=== PATIENT | female | born 1980 | race Caucasian/White ===

== ENCOUNTER 2020-04-29 17:00 | Inpatient (IN) | payer OTHER ==
[2020-04-29 18:28] VITALS: BMI 33.5
[2020-04-29] MEDS ORDERED: CITRIC ACID/SODIUM CITRATE 30 ML UNIT-DOSE CUP PO ONE (19:34)
--- NOTE | 2020-04-29 19:41 | HP ---
Past Medical History - Admission Chief Complaint: Elective History of Present Illness: 39 yo @ 37 weeks gestation, EDC 05/15/20 with previous and gestational diabetes, on insulin, seen by [facility] today at [facility] and was sent for delivery due to associated elevated blood pressure. Patient denies any headache, blurry vision nor epigastric pain.She is scheduled for repeat c- section. History Source: Patient Limitations to Obtaining History: No Limitations - Past Medical History ...: 2 ...Para: 1 ...Term: 1 ...: 0 ...Spon : 0 ...Induced : 0 ...Living Children: 1 ...Multiple Gestation: 0 ...EDC by Tarah: 05/15/20 - Past Surgical History Past Surgical History: Yes: Hx Myomectomy: No Hx Transabdominal Cerclage: No - Smoking History Smoking history: Never smoked Have you smoked in the past 12 months: No - Alcohol/Substance Use Hx Alcohol Use: No History of Substance Use: reports: None - Social History Usual Living Arrangement: Yes: With Child Do you think of yourself as: Straight/Heterosexual History of Recent Travel: No Home Medications - Allergies Allergies/Adverse Reactions: Allergies Allergy/AdvReac Type Severity Reaction Status Date / Time No Known Allergies Allergy Verified 04/29/20 17:35 - Home Medications Home Medications: Ambulatory Orders Insulin NPH [Novolin N Vial] 8 units SQ DAILY 04/29/20 No115/Iron/Folic Acid [ 19 Chewable Tablet] 1 each PO DAILY 04/29/20 Family Medical History Family History: Unremarkable Review of Systems - Review of Systems Constitutional: reports: No Symptoms Eyes: reports: No Symptoms HENT: reports: No Symptoms Neck: reports: No Symptoms Cardiovascular: reports: No Symptoms Respiratory: reports: No Symptoms Gastrointestinal: reports: No Symptoms Genitourinary: reports: No Symptoms Breasts: reports: No Symptoms Reported Musculoskeletal: reports: No Symptoms Neurological: reports: No Symptoms Psychiatric: reports: No Symptoms Pain Intensity: 0 Physical Exam - Maternity Vital Signs: Vital Signs Temperature 98.5 F 04/29/20 18:13 Pulse Rate 104 H 04/29/20 18:13 Respiratory Rate 04/29/20 18:13 Blood Pressure 138/87 04/29/20 18:13 O2 Sat by Pulse Oximetry (%) 100 04/29/20 18:00 Constitutional: Yes: No Distress Eyes: Yes: Conjunctiva Clear HENT: Yes: Atraumatic Neck: Yes: Supple Cardiovascular: Yes: Regular Rate and Rhythm Lungs: Clear to auscultation - Abdominal Exam/OB Number of Fetuses: Single Presentation: Vertex Contractions: No - Vaginal Exam/OB Vaginal Bleeding: No - Physical Exam ...Motor Strength: WNL Psychiatric: Yes: Alert, Oriented Problem List - Problems (1) 37 weeks gestation of Code(s): Z3A.37 - 37 WEEKS GESTATION OF (2) Previous section Code(s): Z98.891 - HISTORY OF UTERINE SCAR FROM PREVIOUS SURGERY (3) Gestational diabetes mellitus (GDM) affecting Code(s): O24.419 - GESTATIONAL DIABETES MELLITUS IN , UNSP CONTROL (4) Gestational hypertension Code(s): O13.9 - GESTATIONAL HTN W/O SIGNIFICANT PROTEINURIA, UNSP TRIMESTER Assessment/Plan 37 weeks gestation Previous Gestational diabetes Gestational hypertension Pre op for repeat Consent signed Anesthesia to see patient
[2020-04-29] MEDS: ELECTROLYTE-148 SOLN 1,000 ML IV SCH (20:20)
[2020-04-29 20:27] LABS: RETICULOCYTES 1.91 % (0.5-1.5)
[2020-04-29 20:28] LABS: BASO % 0.5 % (0-2.0); EOS % 0.8 % (0-4.5); HEMATOCRIT 37.7 % (32.4-45.2); HEMOGLOBIN 12.8 GM/dL (10.7-15.3); LYMPH % 32.1 % (8-40); MCH 32.5 pg (25.7-33.7); MCHC 33.9 g/dl (32.0-36.0); MEAN CELL VOLUME 95.9 fl (80-96); MEAN PLT VOLUME 12.1 fl (7.5-11.1); NEUT % 57.6 % (42.8-82.8); RBC 3.93 M/mm3 (3.60-5.2); RDW 13.6 % (11.6-15.6); WHITE BLOOD COUNT 9.1 K/mm3 (4.0-10.0)
[2020-04-29 20:41] LABS: INR 0.88 (0.83-1.09); PROTHROMBIN TIME (PATIENT) 10.4 SEC (9.7-13.0)
[2020-04-29 20:44] LABS: ACTIVATED PTT 27.1 SECONDS (25.2-36.5)
[2020-04-29 21:18] LABS: BLOOD UREA NITROGEN 10.5 mg/dL (7-18); CALCIUM 8.8 mg/dL (8.5-10.1); CREATININE 0.7 mg/dL (0.55-1.3); URIC ACID 7.5 mg/dL (2.6-7.2)
[2020-04-29 21:19] LABS: GAMMA GLUTAMYL TRANSPEPTIDASE 47 U/L (5-85); SGOT/AST 24 U/L (15-37); SGPT/ALT 16 U/L (13-61)
[2020-04-29 21:50] LABS: PLATELET COUNT 115 K/MM3 (134-434); PLATELET ESTIMATE DECREASED
[2020-04-29] MEDS ORDERED: KETOROLAC TROMETHAMINE 30 MG/1 ML VIAL ONE (22:01)
[2020-04-29] MEDS ORDERED: morphine SULFATE/PF 0.5 MG/ML (2cc Syringe - QUVA) ONE (22:01)
[2020-04-29] MEDS ORDERED: CEFAZOLIN 2 GM/D5W 2 GM/50 ML ML IVPB ONE (22:03)
[2020-04-29] MEDS ORDERED: OXYTOCIN 20 UNITS in 0.9% NS 20 UNIT/1,000 ML INFUS.BAG IV ONE (22:03)
[2020-04-29] MEDS ORDERED: OXYTOCIN 10 UNITS/ML VIAL ONE (22:32)
[2020-04-29] MEDS ORDERED: IBUPROFEN 800 MG/8 ML IJ IVPB PRN (23:11)
[2020-04-29] MEDS ORDERED: METHYLERGONOVINE MALEATE 0.2 MG/1 ML AMP IM PRN (23:11)
--- NOTE | 2020-04-29 23:16 | OP ---
Operative Note - Note: Operative Date: 04/29/20 Pre-Operative Diagnosis: Previous / GDMA / 37 weeks / Gestational hypertension Operation: Repeat Low Transverse Findings: Nuchal cord x 2 Post-Operative Diagnosis: Same as Pre-op Surgeon: Jhoana Billings Sales Representative Business Courses: Aron Sanchez Anesthesia: Spinal Specimens Removed: Placenta Estimated Blood Loss (mls): 700
[2020-04-29] MEDS ORDERED: ONDANSETRON 4 MG/2 ML VIAL IVPUSH PRN (23:18)
[2020-04-29] MEDS: OXYTOCIN 20 UNITS in 0.9% NS 20 UNIT/1,000 ML INFUS.BAG IV SCH (23:30)
[2020-04-29 23:54] LABS: CORD BASE EXCESS -3.2 mmol/L (0-2); CORD HCO3 23.9 mmHg (20-29); CORD PCO2 50.6 mmHg (30-78); CORD pH 7.292 (7.14-7.44)
[2020-04-30 08:32] LABS: BASO % 0.5 % (0-2.0); EOS % 0.7 % (0-4.5); HEMATOCRIT 30.9 % (32.4-45.2); HEMOGLOBIN 10.3 GM/dL (10.7-15.3); LYMPH % 22.6 % (8-40); MCH 31.7 pg (25.7-33.7); MCHC 33.4 g/dl (32.0-36.0); MEAN CELL VOLUME 95.1 fl (80-96); MEAN PLT VOLUME 11.6 fl (7.5-11.1); MONO % 6.6 % (3.8-10.2); NEUT % 69.6 % (42.8-82.8); PLATELET COUNT 118 K/MM3 (134-434); RBC 3.25 M/mm3 (3.60-5.2); RDW 13.4 % (11.6-15.6)
[2020-04-30] MEDS: FERROUS SO4 325 MG TABLET (FP) PO SCH ×2 (09:37→22:56)
[2020-04-30] MEDS: PRENATAL VITAMINS W/ FOLIC ACID TABLET (FP) PO SCH (09:37)
[2020-04-30] MEDS: IBUPROFEN 600 MG TABLET (FP) PO PRN ×3 (13:25→21:57)
[2020-04-30] MEDS: SIMETHICONE 80 MG TAB.CHEW (FP) PO PRN (13:25)
[2020-04-30] MEDS ORDERED: oxyCODONE HCL 5 MG TABLET PO PRN (17:29)
[2020-04-30] MEDS ORDERED: ACETAMINOPHEN 325 MG TABLET (FP) PO PRN (17:30)
[2020-04-30] MEDS: ELECTROLYTE-148 SOLN 1,000 ML IV SCH (21:56)
[2020-04-30] MEDS: ACETAMINOPHEN 325 MG TABLET (FP) PO PRN (21:58)
[2020-04-30] MEDS ORDERED: BISACODYL 10 MG SUPP.RECT RC PRN (23:11)
[2020-04-30] MEDS: OXYTOCIN 20 UNITS in 0.9% NS 20 UNIT/1,000 ML INFUS.BAG IV SCH (23:35)
[2020-05-01] MEDS: ACETAMINOPHEN 325 MG TABLET (FP) PO PRN ×4 (05:02→23:00)
[2020-05-01] MEDS: IBUPROFEN 600 MG TABLET (FP) PO PRN ×4 (05:03→22:59)
[2020-05-01] MEDS: SIMETHICONE 80 MG TAB.CHEW (FP) PO PRN ×2 (05:03→11:15)
--- NOTE | 2020-05-01 08:21 | PN ---
Post Progress Note - Subjective Subjective: 39 yo Para 2 status post repeat Low transverse , seen and evaluated. Doing well. Post Day: 2 Type of Delivery: Repeat C/S Vital Signs: Vital Signs Temperature 98.3 F 04/30/20 22:00 Pulse Rate 67 04/30/20 22:00 Respiratory Rate 18 04/30/20 22:00 Blood Pressure 149/95 04/30/20 22:00 O2 Sat by Pulse Oximetry (%) 99 04/30/20 22:00 Breast Exam: Yes: Soft Uterus: Yes: Fundus below umbilicus Incision: Yes: Dressing dry and intact Abdomen/GI: Yes: Abdomen soft, Tolerating PO Lochia: Yes: Rubra Lochia, amount: Small Extremities: Yes: Calves non-tender Activity: Ambulating - Labs Labs: CBC WBC 11.0 K/mm3 (4.0-10.0) H 04/30/20 08:00 RBC 3.25 M/mm3 (3.60-5.2) L 04/30/20 08:00 Hgb 10.3 GM/dL (10.7-15.3) L 04/30/20 08:00 Hct 30.9 % (32.4-45.2) L D 04/30/20 08:00 MCV 95.1 fl (80-96) 04/30/20 08:00 MCH 31.7 pg (25.7-33.7) 04/30/20 08:00 MCHC 33.4 g/dl (32.0-36.0) 04/30/20 08:00 RDW 13.4 % (11.6-15.6) 04/30/20 08:00 Plt Count 118 K/MM3 (134-434) L 04/30/20 08:00 MPV 11.6 fl (7.5-11.1) H 04/30/20 08:00 Absolute Neuts (auto) 7.6 K/mm3 (1.5-8.0) 04/30/20 08:00 Neutrophils % 69.6 % (42.8-82.8) D 04/30/20 08:00 Lymphocytes % 22.6 % (8-40) D 04/30/20 08:00 Monocytes % 6.6 % (3.8-10.2) 04/30/20 08:00 Eosinophils % 0.7 % (0-4.5) 04/30/20 08:00 Basophils % 0.5 % (0-2.0) 04/30/20 08:00 Nucleated RBC % 0 % (0-0) 04/30/20 08:00 Platelet Estimate Decreased 04/29/20 20:05 Platelet Comment Rare giant plts 04/29/20 20:05 Retic Count 1.91 % (0.5-1.5) H 04/29/20 20:05 Haptoglobin 38 mg/dL (33-278) 04/29/20 20:05 Problem List - Problems (1) 37 weeks gestation of Code(s): Z3A.37 - 37 WEEKS GESTATION OF (2) Previous section Code(s): Z98.891 - HISTORY OF UTERINE SCAR FROM PREVIOUS SURGERY (3) Gestational diabetes mellitus (GDM) affecting Code(s): O24.419 - GESTATIONAL DIABETES MELLITUS IN , UNSP CONTROL (4) Gestational hypertension Code(s): O13.9 - GESTATIONAL HTN W/O SIGNIFICANT PROTEINURIA, UNSP TRIMESTER (5) Status post repeat low transverse section Code(s): Z98.891 - HISTORY OF UTERINE SCAR FROM PREVIOUS SURGERY Assessment/Plan Status post repeat Low Transverse Ambulation Analgesia as needed Continue routine post op care
[2020-05-01] MEDS: FERROUS SO4 325 MG TABLET (FP) PO SCH ×2 (09:54→22:59)
[2020-05-01] MEDS: PRENATAL VITAMINS W/ FOLIC ACID TABLET (FP) PO SCH (09:54)
[2020-05-01 22:59] VITALS: PULSE 69; TEMP 99.4
--- NOTE | 2020-05-02 08:01 | PN ---
Post Note - Post Date of Delivery: 04/29/20 Vital Signs: Vital Signs - 24 hr 05/01/20 05/01/20 10:00 22:00 Temperature 98.2 F 99.4 F Pulse Rate 61 69 Respiratory 18 18 Rate Blood Pressure 129/75 133/77 O2 Sat by Pulse 99 98 Oximetry (%) Labs: Laboratory Results - last 24 hr 04/29/20 05/01/20 20:05 23:05 Haptoglobin 38 POC Glucometer 128 - Subjective Subjective: No Complaints - Objective Afebrile: Yes Breast: Not engorged Abdomen: Soft, Non-tender, Other (inCISion intact) Uterus: Fundus firm Vagina: Scant lochia Extremities: Non-tender - Assessment/Plan (1) Status post repeat low transverse section Assessment: Other (POD) Plan: Routine Care
[2020-05-02 08:56] LABS: BASO % 0.7 % (0-2.0); EOS % 2.4 % (0-4.5); HEMATOCRIT 26.3 % (32.4-45.2); HEMOGLOBIN 8.7 GM/dL (10.7-15.3); LYMPH % 23.3 % (8-40); MCH 31.8 pg (25.7-33.7); MCHC 33.1 g/dl (32.0-36.0); MEAN CELL VOLUME 96.3 fl (80-96); MEAN PLT VOLUME 10.7 fl (7.5-11.1); MONO % 6.1 % (3.8-10.2); NEUT % 67.5 % (42.8-82.8); PLATELET COUNT 142 K/MM3 (134-434); RBC 2.73 M/mm3 (3.60-5.2); RDW 13.6 % (11.6-15.6); WHITE BLOOD COUNT 11.1 K/mm3 (4.0-10.0)
[2020-05-02] MEDS: PRENATAL VITAMINS W/ FOLIC ACID TABLET (FP) PO SCH (09:27)
[2020-05-02] MEDS: FERROUS SO4 325 MG TABLET (FP) PO SCH (09:27)
[2020-05-02] MEDS: IBUPROFEN 600 MG TABLET (FP) PO PRN (09:31)
[2020-05-02] MEDS: ACETAMINOPHEN 325 MG TABLET (FP) PO PRN (09:32)
[2020-05-02] MEDS: SIMETHICONE 80 MG TAB.CHEW (FP) PO PRN (09:32)
--- NOTE | 2020-05-02 11:22 | DS ---
Physical Exam-CLINICAL DATA MANAGEMENT DIRECTOR Vital Signs: Vital Signs Temperature 99.4 F 05/01/20 22:00 Pulse Rate 69 05/01/20 22:00 Respiratory Rate 18 05/01/20 22:00 Blood Pressure 133/77 05/01/20 22:00 O2 Sat by Pulse Oximetry (%) 98 05/01/20 22:00 Constitutional: Yes: No Distress Eyes: Yes: Conjunctiva Clear HENT: Yes: Atraumatic Neck: Yes: Supple Cardiovascular: Yes: Regular Rate and Rhythm Respiratory: Yes: Regular Gastrointestinal: Yes: Normal Bowel Sounds External Genitalia: Yes: Normal Vaginal Exam: Yes: Normal Uterus: Yes: Firm Wound/Incision: Yes: Well Approximated, Steri Strips (in place) Neurological: Yes: Alert, Oriented ...Motor Strength: WNL Psychiatric: Yes: Alert, Oriented Labs: CBC, BMP 05/02/20 08:04 04/29/20 17:44 Delivery - Delivery Type of Anesthesia: Spinal Episiotomy/Laceration: None EBL (cc): 600 Delivery, Single - Stages of Labor Date of Delivery: 04/29/20 Time of Delivery: 22:33 Time Placenta Delivered: 22:34 - Condition of Infant Legal Researcher/Team Assembly Line Machine Operator Present: Yes Name: Nan Cabrera Infant Gender: Female Weight: 8 lb 4 oz Position: OA Total Hours ROM (Hrs/Mins): 3 min - 1 Minute Total Score: 9 5 Minutes Total Score: 9 - [place] Feeding Plan Initial Plan: Elected not to breastfeed exclusively throughout hospitalization Discharge Summary Problems reviewed: Yes Reason For Visit: C SECTION ADMIT Current Active Problems 37 weeks gestation of (Acute) Gestational diabetes mellitus (GDM) affecting (Acute) Gestational hypertension (Acute) Previous section (Acute) Status post repeat low transverse section (Acute) Procedures: Principal: Repeat Low Transverse Hospital Course: Routine post op care Health Concerns: None Plan of Treatment: Ambulation Analgesia as needed F/U with MD in 1 week Goals: Resume regular activities in 4 weeks Condition: Good - Instructions Diet, Activity, Other Instructions: Regular diet No driving, no lifting x 4 weeks F/U with MD in one week Disposition: HOME - Home Medications Comprehensive Discharge Medication List: Ambulatory Orders Insulin NPH [Novolin N Vial] 8 units SQ DAILY 04/29/20 No115/Iron/Folic Acid [ 19 Chewable Tablet] 1 each PO DAILY 04/29/20
[2020-05-02 11:39] VITALS: BP 125/89
--- NOTE | 2020-05-02 13:27 | OP ---
DATE OF OPERATION: 04/29/2020 PREOPERATIVE DIAGNOSIS: Thirty-seven weeks' gestation with previous section, gestational diabetes type 2, and gestational hypertension. POSTOPERATIVE DIAGNOSIS: Thirty-seven weeks' gestation with previous section, gestational diabetes type 2, and gestational hypertension. PROCEDURE: Repeat low transverse section. SURGEON: Jhoana Billings MD ULTRASONIC TESTER: PHILLY Jones ANESTHESIA: Spinal. COMPLICATIONS: None. ESTIMATED BLOOD LOSS: 700 mL. DESCRIPTION OF PROCEDURE: Patient was taken to the operating room where spinal anesthesia was administered. Patient was then prepped and draped in proper sterile fashion. A Pfannenstiel skin incision was made and carried down through the underlying layer of fascia. The fascia was incised in the midline and extended laterally. The inferior aspect of the fascial incision was then grasped with Ranjana clamp, elevated, and the rectus muscle dissected off bluntly. Attention was then turned to the superior aspect of the fascial incision, which in a similar fashion was then grasped with a Ranjana clamp, elevated, and the rectus muscle dissected off bluntly. The rectus muscle was then in the midline, the peritoneum identified and entered sharply with Metzenbaum scissors. This incision was extended superiorly and inferiorly, with good visualization of the bladder. Then the vesicouterine peritoneum was then grasped with a pickup and entered sharply with the Metzenbaum scissors. This incision was extended laterally and a bladder flap created digitally. A bladder blade was inserted, then the lower uterine segment was incised using a 10-blade. This incision was extended laterally and the head delivered atraumatically. Nose and mouth were suctioned. Nuchal cord x2. This cord was released and clamped and cut. The infant was handed to the waiting glass bender. The placenta was removed manually. The uterus was exteriorized and cleared of all clots and debris. The uterine incision was repaired using 0 Biosyn in a running locked fashion. A second layer of the same suture was used as a means to provide excellent hemostasis. The pelvis was then completely irrigated. The uterus was returned to the abdomen. Then the peritoneum was closed, and the fascia was reapproximated using 0 Vicryl in a running fashion, and the skin was closed in a subcuticular fashion using 3-0 Vicryl. Patient tolerated procedure well. Patient was then taken to PACU in stable condition. PATHOLOGY: Placenta. [place] [id number]
--- NOTE | 2020-05-06 17:40 | PATH ---
Surgical Pathology Report Patient Name: CESILIA CARLIN Med. Rec. #: [id number] /Age/Gender: 1980 (Age: 39) / F Account: [id number] Location: [facility] OBS/DATA ABSTRACTOR Taken: 04/29/2020 Received: 04/30/2020 Reported: 05/06/2020 Physicians: Jhoana Billings M.D. Specimen(s) Received PLACENTA Clinical History 37.5 weeks, GDM-gestational hypertension, previous Final Diagnosis PLACENTA, SECTION: 598 G THIRD TRIMESTER PLACENTA WITH TRIVASCULAR UMBILICAL CORD AND UNREMARKABLE PLACENTAL MEMBRANES. Electronically Signed Verna Carney M.D. Gross Description The specimen is received fresh labeled placenta and is a 598 gram, 19.5 x 17.5 x 2.7 cm. placenta with attached membranes and umbilical cord. The attached membranes are musa, translucent with focal opacities and insert marginally. The umbilical cord measures 23 cm. in length and averages 0.9 cm. in diameter. The cord inserts eccentrically, 5 cm. to the nearest margin. No true knots or strictures are identified. Cut surface of the umbilical cord reveals 3 vessels. The surface is cary-blue with minimal fibrin deposition and appropriate caliber vessels. The maternal surface is red-brown with focal defects. Sectioning reveals red-brown, spongy parenchyma. No lesions are identified. Skip Hoist Operator sections are submitted in three cassettes as follows: 1- membrane rolls and umbilical cord; 2-3- full thickness sections of placenta. 05/01/2020 [facility]05/01/2020
== END 2020-05-02 15:30 | disposition home or self-care (01) | DRG 540 ==
LOC: JDEL 17:00 → JLDR 17:30 → J3W 04-30 02:25
PROVIDERS: ADMIT Obstetrics & Gynecology; ATTEND Obstetrics & Gynecology
PROC: 10D00Z1 Extraction of Products of Conception, Low, Open Approach (ICD-10-PCS; principal; 2020-04-29)
DX: O82 Encounter for cesarean delivery without indication (principal); O24.424 Gestational diabetes mellitus in childbirth, insulin controlled; O13.3 Gestational [pregnancy-induced] hypertension without significant proteinuria, third trimester; Z3A.37 37 weeks gestation of pregnancy; Z37.0 Single live birth; Z98.891 History of uterine scar from previous surgery
CPT/HCPCS: 36415; 36600; 80048; 82803; 82962; 82977; 83010; 84450; 84460; 84550; 85025; 85032; 85045; 85610; 85730; 86780; 86850; 86900; 86901; 87389; 88307-TC; U0003